=== PATIENT | female | born 1970 | race Two or more races ===

== ENCOUNTER 2023-10-27 14:09 | Outpatient (RCR) | payer OTHER, SELFPAY | END 2024-07-17 12:37 | disposition short-term general hospital (02) | LOC: HO.WCC 14:09 | PROVIDERS: PCP Internal Medicine; Visit Provider Surgery | DX: E11.621 Type 2 diabetes mellitus with foot ulcer (principal); L97.512 Non-pressure chronic ulcer of other part of right foot with fat layer exposed; T87.89 Other complications of amputation stump; I70.235 Atherosclerosis of native arteries of right leg with ulceration of other part of foot; E11.52 Type 2 diabetes mellitus with diabetic peripheral angiopathy with gangrene; Z79.4 Long term (current) use of insulin; Z79.82 Long term (current) use of aspirin; Z79.2 Long term (current) use of antibiotics; Z79.899 Other long term (current) drug therapy; Z89.421 Acquired absence of other right toe(s); L97.516 Non-pressure chronic ulcer of other part of right foot with bone involvement without evidence of necrosis; I96 Gangrene, not elsewhere classified | CPT/HCPCS: 11042; 87070; 87077; 87205; 97597; 99213 ==

== ENCOUNTER 2023-11-21 13:43 | Outpatient (REF) | payer OTHER, SELFPAY ==
--- NOTE | ~2023-11-21 | US_ITS ---
EXAMINATION: US arterial duplex LE RT, US KALIA complete CLINICAL INFORMATION: PVD Rt leg, left below knee amputation COMPARISON: None TECHNIQUE: Ankle pulse volume recordings, ankle pressure measurements and ankle brachial indices were obtained of the lower extremity arterial system bilaterally in addition to duplex Doppler techniques with wave form analysis and measurement of velocities in the common femoral, profunda femoral, superficial femoral, popliteal, tibial and peroneal arteries. The study was performed only at rest. FINDINGS: RIGHT LE. THE RIGHT ANKLE-BRACHIAL INDEX IS: 0.96 noncompressibility/calcification. >0.97-1.25 = normal - no significant arterial disease 0.75-0.96 = mild peripheral arterial disease 0.5-0.74 = moderate peripheral arterial disease <0.50 = severe peripheral arterial disease <0.30 = critical arterial disease 2. SEGMENTAL PRESSURES (mmHg): Ankle: PT 209, DP 202 3. PVR WAVEFORMS: Ankle: Abnormal DIRECT DUPLEX: Common femoral artery: 225 cm/s, biphasic Profunda femoris artery: 104 cm/s, biphasic Superficial femoral artery (proximal): 120 cm/s, biphasic Superficial femoral artery (mid): 157 cm/s, monophasic Superficial femoral artery (distal): 77 cm/s, monophasic Popliteal artery: 112 cm/s, monophasic Posterior tibial artery: 79 cm/s, monophasic Peroneal artery: 76 cm/s, monophasic Anterior tibial artery: 43 cm/sec, monophasic Dorsalis pedis artery: 18 cm/sec, monophasic LEFT LEG: History of below-knee amputation in 2016. US/US KALIA complete IMPRESSION: RIGHT LEG: Abnormal PVR waveforms and pressures. Right lower extremity arterial calcifications noted. The relatively normal KALIA is likely artifactual related to atheromatous calcifications. There is monophasic flow throughout the right lower extremity. LEFT LEG: Status post below-knee amputation.
--- NOTE | ~2023-11-21 | US_ITS ---
EXAMINATION: US arterial duplex LE RT, US KALIA complete CLINICAL INFORMATION: PVD Rt leg, left below knee amputation COMPARISON: None TECHNIQUE: Ankle pulse volume recordings, ankle pressure measurements and ankle brachial indices were obtained of the lower extremity arterial system bilaterally in addition to duplex Doppler techniques with wave form analysis and measurement of velocities in the common femoral, profunda femoral, superficial femoral, popliteal, tibial and peroneal arteries. The study was performed only at rest. FINDINGS: RIGHT LE. THE RIGHT ANKLE-BRACHIAL INDEX IS: 0.96 noncompressibility/calcification. >0.97-1.25 = normal - no significant arterial disease 0.75-0.96 = mild peripheral arterial disease 0.5-0.74 = moderate peripheral arterial disease <0.50 = severe peripheral arterial disease <0.30 = critical arterial disease 2. SEGMENTAL PRESSURES (mmHg): Ankle: PT 209, DP 202 3. PVR WAVEFORMS: Ankle: Abnormal DIRECT DUPLEX: Common femoral artery: 225 cm/s, biphasic Profunda femoris artery: 104 cm/s, biphasic Superficial femoral artery (proximal): 120 cm/s, biphasic Superficial femoral artery (mid): 157 cm/s, monophasic Superficial femoral artery (distal): 77 cm/s, monophasic Popliteal artery: 112 cm/s, monophasic Posterior tibial artery: 79 cm/s, monophasic Peroneal artery: 76 cm/s, monophasic Anterior tibial artery: 43 cm/sec, monophasic Dorsalis pedis artery: 18 cm/sec, monophasic LEFT LEG: History of below-knee amputation in 2016. US/US arterial duplex LE RT IMPRESSION: RIGHT LEG: Abnormal PVR waveforms and pressures. Right lower extremity arterial calcifications noted. The relatively normal KALIA is likely artifactual related to atheromatous calcifications. There is monophasic flow throughout the right lower extremity. LEFT LEG: Status post below-knee amputation.
== END 2023-11-21 13:44 | disposition home or self-care (01) ==
LOC: HO.US 13:43
PROVIDERS: PCP Internal Medicine; Visit Provider Surgery
DX: I73.89 Other specified peripheral vascular diseases (principal)
CPT/HCPCS: 93923; 93925; 93926